=== PATIENT | female | born 1975 | race African-American/Black ===

== ENCOUNTER 2016-11-03 18:40 | Emergency (ER) | payer MEDICAID ==
[~2016-11-03] VITALS: Ht 165.1 cm; Wt 80.0 kg
[2016-11-04] MEDS ORDERED: KETOROLAC 30MG/ML VIAL IM ONE (00:45)
[2016-11-04] MEDS ORDERED: IBUPROFEN 600MG TABLET PO ONE (01:15)
[2016-11-04 01:55] VITALS: BP 123/56
== END 2016-11-04 02:02 | disposition home or self-care (01) ==
LOC: ER 18:40
DX: S93.602A Unspecified sprain of left foot, initial encounter (principal); W18.39XA Other fall on same level, initial encounter; Y93.89 Activity, other specified; Y92.512 Supermarket, store or market as the place of occurrence of the external cause; Y99.8 Other external cause status
CPT/HCPCS: 73630; 99284; J1885